=== PATIENT | male | born 1935 | race Caucasian/White ===

== ENCOUNTER 2020-11-30 10:04 | Day surgery (SDC) | payer MEDICARE, BC ==
[2020-11-30] VITALS (16 sets, daily range): BP systolic 132–191; BP diastolic 62–116; PULSE 66–84; TEMP 97.6
[~2020-11-30] VITALS: Ht 185.4 cm; Wt 89.6 kg
[2020-11-30 11:03] LABS: HEMATOCRIT 44.6 % (42.0-52.0); HEMOGLOBIN 14.7 g/dl (13.5-18.0); MEAN CELL VOLUME 93 fl (80.0-100.0); MEAN CORPUSCULAR HEMOGLOBIN 31 pg (27.0-31.0); MEAN CORPUSCULAR HGB CONC 33 g/dl (33.0-37.0); MEAN PLATELET VOLUME 10.2 fl (7.4-10.4); PLATELET COUNT 206 K/mm3 (130-400); RED BLOOD COUNT 4.79 M/mm3 (4.20-5.60)
[2020-11-30] MEDS ORDERED: ASPIRIN 81M81 MG/TA2 PO (11:12)
[2020-11-30] MEDS ORDERED: PRAVACHOL 20MG20 MG PO (11:12)
[2020-11-30] MEDS ORDERED: AVAPRO300 M1 PO (11:12)
[2020-11-30] MEDS ORDERED: EYE MULTIVITAM1 EAC1 PO (11:13)
[2020-11-30] MEDS ORDERED: ALEVE PM PO (11:14)
[2020-11-30 11:15] LABS: CALCIUM 8.9 mg/dL (8.4-10.2); CREATININE, serum 0.73 (0.66-1.25)
[2020-11-30 11:16] LABS: INR 1.1 (0.8-3.0); PROTHROMBIN TIME 11.9 SECONDS (9.7-12.8)
[2020-11-30 11:19] LABS: PARTIAL THROMBOPLASTIN TIME 29.8 SECONDS (26.0-37.0)
[2020-11-30] MEDS ORDERED: TOPROL XL 25MG25 MG PO (15:41)
[2020-11-30] MEDS ORDERED: PRAVACHOL 40MG40 MG PO (15:41)
--- NOTE | 2020-11-30 17:46 | NUR ---
report to Maryana Nicolas.
--- NOTE | 2020-11-30 18:15 | NUR ---
Pt is doing well during his recovery, he has remained in SR with occasional PVCs. TR band has been deflated, site dressed with bandaid, folded 2x2 and coban, cms remains intact distal. wctm. Rt groin site remains soft with cms also intact distal. I reviewed fu/rx and dc instructions with pt and . They both verbalize understanding and deny questions at this time. Pt has eaten dinner, and has been able to use urinal with no problem. WCTM. Bedrest over at 1930.
--- NOTE | 2020-11-30 19:45 | NUR ---
Pt has been up and ambulatory with steady gait around nurses station. Pt and deny any questions about dc/rx/fu instructions. IV is dc'd with cath intact, dressing applied. rt groin site remains soft without evidence of bleeding or hematoma at time of departure. rt radial site also looks good without evidence of any bleeding or hematoma. cms intact to all extremities. pt escorted to exit via wheelchair.
== END 2020-11-30 20:00 | disposition home or self-care (01) ==
LOC: COL.CAR 10:04
PROVIDERS: Internal Medicine Cardiovascular Disease
DX: I42.8 Other cardiomyopathies (principal); I49.3 Ventricular premature depolarization; I10 Essential (primary) hypertension; E78.2 Mixed hyperlipidemia; E78.5 Hyperlipidemia, unspecified; Z20.822 Contact with and (suspected) exposure to COVID-19; Z85.828 Personal history of other malignant neoplasm of skin; Z79.82 Long term (current) use of aspirin; Z79.899 Other long term (current) drug therapy; Z87.891 Personal history of nicotine dependence; Z80.9 Family history of malignant neoplasm, unspecified
CPT/HCPCS: C1760; C1769; C1894; J1644; J2250; J3010; Q9967